=== PATIENT | female | born 1960 | race Caucasian/White ===

== ENCOUNTER 2023-08-04 11:05 | Outpatient (CLI) | payer OTHER, SELFPAY ==
--- NOTE | ~2023-08-04 | XR_ITS ---
EXAMINATION: XR lumbar spine min 4V DATE: 08/04/2023 11:30 INDICATION: Lumbar spondylosis without myelopathy or radiculopathy. TECHNIQUE: 6 views of lumbar spine including standing views were obtained. COMPARISON: None. FINDINGS: There is 14 degrees levoscoliosis of thoracolumbar spine. Vertebral body heights are normal . There is mildly decreased disc height at L2-L3 and L3-L4 and severely decreased disc height at L4-L 5 and L5-S1. There is multilevel facet joint osteoarthritis, severe bilaterally from L3-L4 through L5 -S1. IMPRESSION: 1. Severe lumbar spondylosis. 2. Thoracolumbar levoscoliosis. Reviewed, dictated and finalized at location E. [facility]
== END 2023-08-04 11:06 | disposition home or self-care (01) ==
LOC: ANHIMG 11:10
PROVIDERS: PCP Family Medicine; Visit Provider Physician Assistant
DX: M47.816 Spondylosis without myelopathy or radiculopathy, lumbar region (principal); M43.06 Spondylolysis, lumbar region; M41.85 Other forms of scoliosis, thoracolumbar region
CPT/HCPCS: 72110